=== PATIENT | male | born 2005 | race Caucasian/White ===

== ENCOUNTER → 2025-08-20 | Outpatient (CLI) | payer OTHER, BC | END | disposition home or self-care (01) | LOC: WOUNDCARE 14:44 | PROVIDERS: ATTEND Nurse Practitioner Family | DX: T23.301A Burn of third degree of right hand, unspecified site, initial encounter (principal); T23.202A Burn of second degree of left hand, unspecified site, initial encounter; T31.0 Burns involving less than 10% of body surface; X08.8XXA Exposure to other specified smoke, fire and flames, initial encounter; Y93.89 Activity, other specified; Y92.89 Other specified places as the place of occurrence of the external cause; Y99.8 Other external cause status ==

== ENCOUNTER → 2025-08-27 | Outpatient (CLI) | payer OTHER | END | disposition home or self-care (01) | LOC: WOUNDCARE 01:37 | PROVIDERS: ATTEND Nurse Practitioner Family | DX: T23.301D Burn of third degree of right hand, unspecified site, subsequent encounter (principal); T23.202D Burn of second degree of left hand, unspecified site, subsequent encounter; T31.0 Burns involving less than 10% of body surface; X08.8XXD Exposure to other specified smoke, fire and flames, subsequent encounter ==

== ENCOUNTER → 2025-09-04 | Outpatient (CLI) | payer OTHER | END | disposition home or self-care (01) | LOC: WOUNDCARE 02:15 | PROVIDERS: ATTEND Nurse Practitioner Family | DX: T23.301D Burn of third degree of right hand, unspecified site, subsequent encounter (principal); T23.302D Burn of third degree of left hand, unspecified site, subsequent encounter; T31.0 Burns involving less than 10% of body surface; X08.8XXD Exposure to other specified smoke, fire and flames, subsequent encounter ==

== ENCOUNTER → 2025-09-11 | Outpatient (CLI) | payer OTHER | END | disposition home or self-care (01) | LOC: WOUNDCARE 00:14 | PROVIDERS: ATTEND Nurse Practitioner Family | DX: T23.301D Burn of third degree of right hand, unspecified site, subsequent encounter (principal); T23.202D Burn of second degree of left hand, unspecified site, subsequent encounter; T31.0 Burns involving less than 10% of body surface; X08.8XXD Exposure to other specified smoke, fire and flames, subsequent encounter ==